=== PATIENT | female | born 1960 | race Caucasian/White ===

== ENCOUNTER 2020-06-16 08:04 | Day surgery (SDC) | payer OTHER, SELFPAY ==
[2020-06-10 11:24] VITALS: BMI 29.5
--- NOTE | 2020-06-13 13:10 | P.CONAN_ITS ---
Documented by User: Sabiha Bray 06/13/20 13:11 HPI - Anesthesia Eval Consult details Narrative: 59yo F for Colonoscopy [facility] Past Medical History Medical History Arthritis Back pain Seasonal allergies Vomiting and diarrhea Surgical History Surgical History (Updated 06/10/20 @ 11:21 by Shari Horne) H/O LEEP History of bilateral breast reduction surgery S/P partial hysterectomy S/P right rotator cuff repair Social History Social History (Updated 06/16/20 @ 08:57 by Blair Stanford) Smoking Status: Former smoker Smoking Quit Date: 2012 Second Hand Smoke Exposure: No Use of substances other than those prescribed or required for medical reasons: Y Substance Use Frequency: Daily Advance Directives: No Advance Directives Information Provided: No Meds Allergies Allergy/AdvReac Type Severity Reaction Status Date / Time SEASONAL ALLERGIES Allergy Intermediate COUGH,SNEEZ Uncoded 06/02/20 15:07 E,SOB Home Medications Medication Instructions Recorded Confirmed Type albuterol sulfate [ProAir HFA] 2 puff INHALATION Q4-6H PRN 06/10/20 06/10/20 History Exam Exam Date and Time: June 13, 2020 1310 Height,Weight and Vital Signs: Height 5 ft 4 in Weight 78.2 kg Assessment and Plan Assessment Anesthesia Assessment: Chart Reviewed (06/13/20 ) Documented by User: Blair Stanford 06/16/20 09:08 [facility] Past Medical History Medical History Arthritis Back pain Seasonal allergies Vomiting and diarrhea Surgical History Surgical History (Updated 06/10/20 @ 11:21 by Shari Horne) H/O LEEP History of bilateral breast reduction surgery S/P partial hysterectomy S/P right rotator cuff repair History of Problems with Anesthesia: No Social History Social History (Updated 06/16/20 @ 08:57 by Blair Stanford) Smoking Status: Former smoker Smoking Quit Date: 2012 Second Hand Smoke Exposure: No Use of substances other than those prescribed or required for medical reasons: Y Substance Use Frequency: Daily Advance Directives: No Advance Directives Information Provided: No Meds Allergies Allergy/AdvReac Type Severity Reaction Status Date / Time SEASONAL ALLERGIES Allergy Intermediate COUGH,SNEEZ Uncoded 06/02/20 15:07 E,SOB Home Medications Medication Instructions Recorded Confirmed Type albuterol sulfate [ProAir HFA] 2 puff INHALATION Q4-6H PRN 06/10/20 06/10/20 History Exam Airway Mallampati Class: II TM Dist: >3cm Neck ROM: Limited Loose/Missing/Broken Teeth: Yes (Several) Heart: RRR Assessment and Plan Assessment Anesthesia Assessment: Anesthesia Plan Discussed, Consent Obtained and Chart Reviewed Final Anesthetic Review NPO: Yes ASA Class: II Final Preanesthetic Review: Meds & Allergies Reviewed, Med/Surg/Anes Hx Reviewed and Anes Risks/Benef Reviewed Anesthetic Plan Anesthetic Plan: MAC: Disposition: Standard PACU
[2020-06-16] MEDS: Lactated Ringers 1,000 ML 100 ML IVCONT (09:11)
[2020-06-16 09:17] VITALS: BP 115/73; PULSE 61; RESP 16; TEMP 36.6; O2SAT 96
--- NOTE | 2020-06-16 09:36 | MHC.SHP ---
Surgical H&P Section B Chief Complaint: Malignant Neoplasm of Colon Allergies: Allergies Allergy/AdvReac Type Severity Reaction Status Date / Time SEASONAL ALLERGIES Allergy Intermediate COUGH,SNEEZ Uncoded 06/02/20 15:07 E,SOB Plan Patient has been examined and remains a candidate for the planned procedure
[2020-06-16 10:08] VITALS: BP 81/49; BP 91/56; PULSE 60; PULSE 61; RESP 16; RESP 18; TEMP 37.1; O2SAT 95; O2SAT 96
[2020-06-16 10:10] VITALS: BP 97/56; PULSE 55; RESP 16
--- NOTE | 2020-06-16 10:14 | PM.PROC ---
Brief Operative Note Date of procedure: 06/16/20 Pre-op diagnosis: Colon cancer screening-Positive family hx 2nd degree relative Post-op diagnosis: other (Diverticulosis) Procedure: colonoscopy Anesthesia: MAC Surgeon: Karo Gonzalez Condition: stable Disposition: PACU
[2020-06-16 10:18] VITALS: BP 109/89; PULSE 55; RESP 16; O2SAT 97
[2020-06-16 10:20] VITALS: BP 116/85; PULSE 62; RESP 16; O2SAT 99
[2020-06-16 10:30] VITALS: BP 125/71; PULSE 54; RESP 16; O2SAT 98
--- NOTE | 2020-06-16 21:12 | OP_ITS ---
SURGEON: Karo Gonzalez MD PREOPERATIVE DIAGNOSIS: Colon Cancer Screening: Second degree positive for colon cancer. POSTOPERATIVE DIAGNOSIS: Diverticulosis. PROCEDURE PERFORMED: Colonoscopy. ESTIMATED BLOOD LOSS: No blood loss. COMPLICATIONS: No complications. ANESTHESIA: MAC anesthesia. ANESTHESIOLOGIST: Blair Stanford MD ASSISTANTS:NONE SPECIMENS: No specimens ASSAULT BOAT [place]: Karo Gonzalez MD. FINDINGS: Digital rectal exam revealed sphincter tone to be adequate. Video colonoscope was introduced without difficulty. It was navigated into the rectosigmoid area. There was angulation here in the most distal portion of the sigmoid. There was some degree of prolapse, slow movement through this area. Lumen opened up in the region of the sigmoid descending transition. There were number of diverticula noted on this area of the left side. Scope slowly progressed through descending, transverse, ascending colon, and easily destinated in the cecal cap. Appendiceal orifice was seen. Ileocecal valve was well seen. Prep was excellent. Scope was withdrawn with slow rotational views. No mucosal lesions were seen. Anorectal verge was clear. PLAN: Current recommendation is to repeat asymptomatic screening with a negative exam at this time and a history of a second-degree relative would be a 7-year recall. CLIN NURSE: No human resource assistant. GRAFT OR IMPLANTS: No grafts or implants. CONDITION: Postprocedure, stable. Karo Gonzalez MD MEN/MODL / [id number] MTDD
== END 2020-06-16 11:00 | disposition home or self-care (01) ==
LOC: HO.SSS 08:11
PROVIDERS: PCP Pediatrics; Visit Provider Internal Medicine Gastroenterology
PROC: 0DJD8ZZ Inspection of Lower Intestinal Tract, Via Natural or Artificial Opening Endoscopic (ICD-10-PCS; CPT 45378; principal; 2020-06-16 09:20)
DX: Z12.11 Encounter for screening for malignant neoplasm of colon (principal); K57.30 Diverticulosis of large intestine without perforation or abscess without bleeding; J30.2 Other seasonal allergic rhinitis; Z90.710 Acquired absence of both cervix and uterus; Z87.891 Personal history of nicotine dependence; Z79.899 Other long term (current) drug therapy
CPT/HCPCS: 45378

== ENCOUNTER → 2020-07-07 08:53 | Outpatient (BNVA) | payer OTHER, SELFPAY | PROVIDERS: Visit Provider Physician Assistant | DX: K57.30 Diverticulosis of large intestine without perforation or abscess without bleeding (principal); Z80.0 Family history of malignant neoplasm of digestive organs; Z98.890 Other specified postprocedural states | CPT/HCPCS: 99213 ==